=== PATIENT | female | born 1990 | race Caucasian/White ===

== ENCOUNTER 2017-11-02 18:53 | Outpatient (CLI) | payer OTHER | END 2017-11-03 17:56 | disposition home or self-care (01) | LOC: OBS/DEL 18:53 | DX: O41.03X0 Oligohydramnios, third trimester, not applicable or unspecified (principal); O23.43 Unspecified infection of urinary tract in pregnancy, third trimester; O47.1 False labor at or after 37 completed weeks of gestation; Z34.03 Encounter for supervision of normal first pregnancy, third trimester ==

== ENCOUNTER 2017-11-21 01:06 | Inpatient (IN) | payer OTHER ==
[~2017-11-21] VITALS: Ht 157.5 cm; Wt 63.5 kg
[2017-11-21] MEDS ORDERED: PRENATAL TABLE1 EACH PO (01:17)
[2017-11-21] MEDS ORDERED: IRON325 MG (01:19)
== END 2017-11-24 14:06 | disposition home or self-care, planned readmission (81) | DRG 775 ==
LOC: OBS/DEL 01:06 → LDR 17:41 → OB/GYN 17:41 → OBS/DEL 17:41 → OB/GYN 11-22 03:21
PROC: 10E0XZZ Delivery of Products of Conception, External Approach (ICD-10-PCS; principal; 2017-11-22)
PROC: 0HQ9XZZ Repair Perineum Skin, External Approach (ICD-10-PCS; 2017-11-22)
PROC: 10907ZC Drainage of Amniotic Fluid, Therapeutic from Products of Conception, Via Natural or Artificial Opening (ICD-10-PCS; 2017-11-22)
PROC: 3E0P7VZ Introduction of Hormone into Female Reproductive, Via Natural or Artificial Opening (ICD-10-PCS; 2017-11-22)
PROC: 3E033VJ Introduction of Other Hormone into Peripheral Vein, Percutaneous Approach (ICD-10-PCS; 2017-11-22)
PROC: 4A033R1 Measurement of Arterial Saturation, Peripheral, Percutaneous Approach (ICD-10-PCS; 2017-11-22)
PROC: 4A1HXCZ Monitoring of Products of Conception, Cardiac Rate, External Approach (ICD-10-PCS; 2017-11-22)
DX: O70.0 First degree perineal laceration during delivery (principal); Z3A.39 39 weeks gestation of pregnancy; Z37.0 Single live birth; Z22.330 Carrier of Group B streptococcus